=== PATIENT | male | born 1970 | race Caucasian/White ===

== ENCOUNTER 2018-09-08 15:54 | Emergency (ER) | payer MEDICAID, OTHER ==
[~2018-09-08] VITALS: Ht 182.9 cm; Wt 99.8 kg
[2018-09-08] MEDS ORDERED: ceFAZolin 1GM/50ML 100 ML IV ONE (16:15)
[2018-09-08 16:38] VITALS: BP 140/76
== END 2018-09-08 16:16 | disposition short-term general hospital (02) ==
LOC: ER 15:54 → EDBD 15:54 → ER 16:16
DX: S61.512A Laceration without foreign body of left wrist, initial encounter (principal); W26.0XXA Contact with knife, initial encounter; Y93.89 Activity, other specified; Y99.8 Other external cause status; Y92.89 Other specified places as the place of occurrence of the external cause
CPT/HCPCS: 96374; 99291; J0690